=== PATIENT | male | born 1955 | race Caucasian/White ===

== ENCOUNTER → 2017-03-18 | Outpatient (CLI) | payer OTHER ==
[~2017-03-18] MED LIST: ASPCH81X PO; DIPH25TA24 PO; EZET10TA44 PO; LOSA50TA6 PO; METO25TA56 PO; PRED20TA PO
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
== END | disposition home or self-care (01) ==
LOC: C.NEUR 20:00
PROVIDERS: ATTEND Internal Medicine Cardiovascular Disease
DX: G47.33 Obstructive sleep apnea (adult) (pediatric) (principal)

== ENCOUNTER → 2017-04-18 | Outpatient (CLI) | payer OTHER ==
[2017-04-18 14:56] LABS: BASO % 0.2 %; BASO ABS # 0.02 K/uL (0-0.2); COMPLETE YES; EOS % 1.2 %; HEMATOCRIT 47.4 % (42-52); IG% 0.3 %; LYMPH % 20.6 %; LYMPH ABS # 1.99 K/uL (1.2-3.4); MEAN CELL VOLUME 85.1 fL (80-100); MEAN CORPUSCULAR HEMOGLOBIN 27.8 pg (25-34); MEAN CORPUSCULAR HGB CONC 32.7 g/dl (32-36); MEAN PLATELET VOLUME 10.1 fL (7.4-10.4); MONO % 8.4 %; NEUT % 69.3 %; PLATELET COUNT 232 K/uL (130-400); RED BLOOD COUNT 5.57 M/uL (4.7-6.1); WHITE BLOOD COUNT 9.65 K/uL (4.8-10.8)
[2017-04-18 14:57] LABS: ALT/SGPT 28 U/L (12-78); BLOOD UREA NITROGEN 12 mg/dl (7-18); BUN/CREATININE RATIO 12.9 (10-20); CARBON DIOXIDE 27 mmol/L (21-32); CHLORIDE 102 mmol/L (98-107); CHOLESTEROL 111 mg/dl (0-200); CREATININE 0.91 mg/dl (0.60-1.40); GLUCOSE 100 mg/dl (70-99); SODIUM 137 mmol/L (136-145)
[2017-04-18 15:01] LABS: CALCIUM 8.8 mg/dl (8.5-10.1)
[2017-04-18 15:07] LABS: ALB/GLOB RATIO 0.9 (0.9-2); ALKALINE PHOSPHATASE 76 U/L (45-117); AST/SGOT 15 U/L (15-37); CHOLESTEROL/HDL RATIO 3.2; HDL CHOLESTEROL 35 mg/dl; LDL CHOLESTEROL CALCULATED 48 mg/dl; PROSTATE SPECIFIC ANTIGEN 0.461 ng/ml (0.000-4.000); TRIGLYCERIDES 138 mg/dl (0-150); VERY LOW DENSITY LIPOPROT CALC 28 mg/dl
== END | disposition home or self-care (01) ==
LOC: C.LAB1850 11:22
PROVIDERS: ATTEND Internal Medicine
DX: I25.10 Atherosclerotic heart disease of native coronary artery without angina pectoris (principal); Z12.5 Encounter for screening for malignant neoplasm of prostate; G47.33 Obstructive sleep apnea (adult) (pediatric)

== ENCOUNTER → 2017-06-03 | Outpatient (CLI) | payer OTHER ==
[~2017-06-03] VITALS: Ht 172.7 cm; Wt 122.4 kg
[2017-06-03 13:08] VITALS: BP 155/84; PULSE 77; Ht 172.7 cm; Wt 122.4 kg
== END | disposition home or self-care (01) ==
LOC: C.NEUR 12:55
PROVIDERS: ATTEND Internal Medicine Pulmonary Disease
DX: G47.33 Obstructive sleep apnea (adult) (pediatric) (principal); I25.10 Atherosclerotic heart disease of native coronary artery without angina pectoris; G47.21 Circadian rhythm sleep disorder, delayed sleep phase type

== ENCOUNTER → 2017-06-12 | Outpatient (CLI) | payer OTHER ==
--- NOTE | 2017-06-13 07:24 | PAP/PSG TECHNICIAN REPORT ---
[facility] Police Service Technician Polysomnogram Report Study name: None Report date: 06/13/2017 Study date: 06/12/2017 Referring Physician: Adiel Garcia Name: JACKIE MAN Interpreting Physician: Charlie Hicks M.D. Date of : 1955 Police Service Technician: Thuy Patterson, PSGT. Sex: Male Age: 61 StudyType: PSG Weight: 122.4 kgs Height: 61 years, Height 5' 8" Neck Circum:18.5 inches BMI: Medications: Asmanex, Aspirin 81 mg, Atrovastatin 80 mg, Losartan 100 mg, Metoprolol 25 mg, ProAir, Proventil Hfa. Patient History 61 yr. old here for a titration sleep study. Pt. Had a baseline study 03/2017 and had an ahi of 54.Patient had a 10 mg, Ambien prior to bed. Parameters Monitored NPSG: E1-M2, E2-M1, Fp1-M2, Fp2-M1, F3-M2, F4-M2, F4-M1, C3-M2, C4-M2, C4-M1, O1-M2, O2-M2, O2-M1, T3-M2, T4-M1, P3-M2, P4-M1, CHIN1, CHIN2, HR, EKG, Legs, PFLOW, SNOR, FLOW, CFLOW, Tidal Volume, THOR, ABDO, SpO2, PLTH, CPRESS, ETCO2 Wave, ETCO2, pH Sleep Architecture Sleep Stages Time at Lights Off 10:53:00 PM STAGES Time (min.) TST (%) Time at Lights On 5:17:00 AM Wake 40.0 -- Total Recording Time (TRT) 381.00 min. N1 25.0 7 Total Sleep Period (TSP) 359.0 min. N2 244.0 72 Total Sleep Time (TST) 340.5min. N3 0.0 0 Awake Time 40.5 min. REM 71.5 21 Wake after Sleep Onset 22.0 min. Sleep Efficiency (SE) 89 % Sleep Onset Latency (STEPHENIE) 21.5 min. Number of Stage 1 Shifts None Awakenings 8 Stage Changes 39 Number of REM periods 5 REM 71.5 21 REM Latency 37.5 min. NREM 269.0 79 Body Position Analysis Supine Right Left Side Prone Vertical Total Sleep Time (min.) 135.3 66.6 166.4 233.05 0.0 0.0 Total Sleep Time (%) 32% 20% 49% 68 0% N/A% Total Sleep Time REM (min.) 12.5 10.5 48.5 None 0.0 0.0 Total Sleep Time NREM (min.) 95.0 56.1 117.9 None 0.0 0.0 Intermittent Wake (min.) 27.9 7.1 5.0 None 0.0 0.0 Total Sleep Period (%) 32% None None None None None Arousals Myoclonus (PLM) * Events Count Index Events Count Index Spontaneous 45 8 Events Awake (PLMW) 0 0.0 Respiratory 29 5.1 Events Asleep w/ Arousal (PLMA) 9 1.6 PLM 9 2 Events Asleep w/o Arousal (PLMS) 231 40.7 Snoring 6 1 Total Asleep 240 42.3 Total 88 16 Total 240 38 Respiratory Analysis * CA OA MA CH H RERA Total Count 0 0 0 0 63 0 63 Index 0.0 0.0 0.0 0 11.1 0 11.1 Mean Duration 0.0 0.0 0.0 0.00 21.3 0.0 21.3 Longest Duration 0.0 0.0 0.0 0.00 0.0 0.0 56.4 Respiratory Event Summary Total Supine ~Supine Right Left Prone REM NREM Apneas Count 0 0 0 0 0 N/A 0 0 Index 0.0 0 0 0.0 0.0 N/A 0 0 Hypopneas (4% Desat) Count 63 8 55 32 23 N/A 7 56 Index 11.1 4.5 14 28.8 8.3 N/A 5.9 12.5 Apneas & All Hypopneas Count 63 8 55 32 23 N/A 7 56 Index 11.1 4 14 29 8 N/A 5.9 12.5 Respiratory Events (Technical Sales Support Manager+All Hyp+RERA) Count 63 8 55 32 23 N/A 7 56 Index 11.1 4 14 28.8 8.3 N/A 5.9 12.5 Respiratory Related Arousal Count 29 8 25 17 8 N/A 0 29 Index 5.1 2 6 15 3 N/A 0 6 Snoring Analysis Supine Right Left Prone REM NREM Total Snore duration 8.6 min Snores count 40 122 75 N/A 3 234 237 Snore mean duration 2.2 Sec Snores index 22 110 27 N/A 2.5 52.2 41.8 TST with snoring (%) 2.5% Desaturation Event Summary: Minimum %SpO2 Event Count Mean/Min/Max Duration(sec.) Desaturation Index % Time In Bed > 90 76 27.5 / 10.0 / 56.8 72.7 16.8 86 - 90 66 26.4 / 6.5 / 60.0 15.4 69.2 81 - 85 5 28.3 / 8.8 / 45.0 7.2 11.2 76 - 80 0 N/A 0.0 2.5 71 - 75 0 N/A 0.0 0.2 66 - 70 0 N/A 0.0 0.0 61 - 65 0 N/A 0.0 0.0 56 - 60 0 N/A 0.0 0.0 51 - 55 0 N/A 0.0 0.0 < 50 0 N/A 0.0 0.0 Total REM NREM Awake <50% 0.0 min. 0.0 min. 0.0 min. 0.0 min. 51 - 60% 0.0 min. 0.0 min. 0.0 min. 0.0 min. 61 - 70% 0.0 min. 0.0 min. 0.0 min. 0.0 min. 71 - 80% 10.1 min. 3.5 min. 6.6 min. 0.0 min. 81 - 90% 299.7 min. 58.6 min. 214.6 min. 26.5 min. 91 - 100% 62.7 min. 9.0 min. 43.5 min. 10.2 min. Average 88 87 88 89 Minimum SpO2 72 78 72 80 Desaturation Event Index 17.3 16.8 20.1 0.0 # Desat. Events below 89% 104 20 84 0 Time(%) with Saturation below 89% 56.1 11.3 41.6 3.3 Time(min.) with Saturation below 89% 209.1 41.9 154.8 12.4 Heart Rate Analysis End Tidal CO2 Analysis Min (bpm) Max (bpm) Average (bpm) TSP (mins) % of TSP Awake 51 196 67 Above 55 mmHg 0.0 0.0 NREM 49 127 62 50-55 mmHg 0.0 0.0 REM 53 83 64 45-50 mmHg 340.5 100.0 Overall 49 127 62 40-45 mmHg 0.0 0.0 35-40 mmHg 0.0 0.0 30-35 mmHg 0.0 0.0 Average ETCO2 0.0 Supplemental O2 Values Minimum O2 level: None Value Start Time End Time Police Service Technician Comments PAP Study: Mr. Man slept in the right, left, and supine positions. No cardiac arrhythmia, PLM's noted. No bruxism noted. CPAP was initiated at +4 CMH2O and up-titrated to an optimal level of +14 CMH2O, which nearly eliminated all respiratory events and snoring. A Res Mark[employer] mirage quattro was used during titration awoke to use the restroom zero times during the night. stated, I slept better than I do when I am in my own bed. The final report will be interpreted and signed by a sleep physician. The completed physician report will then be placed in the patient medical record. Pt. Had a lot of leg movement prior to sleep and onset of sleep. He also would remove his mask while sleeping and his oxygen sensor, when I would go into the room to put the mask and sensor back on he was very groggy and hard to understand what he was saying. Therapy Event: Therapy (cm H20) 0 4 6 8 10 12 14 Total Time at Pressure (min.) 0.6 35.8 9.8 116.0 35.5 65.9 116.9 TST at Pressure (min.) 0.0 6.4 9.8 113.5 31.5 65.9 113.4 # Periods 1 1 1 1 1 1 1 Sleep Onset (min.) N/A 20.9 0.0 0.0 0.0 0.0 0.0 REM Onset (min.) N/A N/A N/A 12.8 33.3 0.0 104.4 Sleep Efficiency % 0 17 100 97 88 100 97 Wakefulness (%) 100.0 82.1 0.0 2.2 11.3 0.0 3.0 Wakefulness (min.) 0.6 29.4 0.0 2.5 4.0 0.0 3.5 NREM 1 (%) 0.0 16.5 1.0 2.6 8.5 0.0 11.1 NREM 1 (min.) 0.0 5.9 0.1 3.0 3.0 0.0 13.0 NREM 2 (%) 0.0 1.4 99.0 86.2 74.2 29.7 75.2 NREM 2 (min.) 0.0 0.5 9.7 100.0 26.3 19.6 87.9 NREM 3 (%) 0.0 0.0 0.0 0.0 0.0 0.0 0.0 NREM 3 (min.) 0.0 0.0 0.0 0.0 0.0 0.0 0.0 REM (%) 0.0 0.0 0.0 9.1 6.1 70.3 10.7 REM (min.) 0.0 0.0 0.0 10.5 2.2 46.3 12.5 # Arousals N/A 4 12 20 14 8 30 Arousal Index N/A 37.5 73.3 10.6 26.7 7.3 15.9 # Snore N/A 13 87 41 44 8 44 Snore Index N/A 121.8 531.5 21.7 83.9 7.3 23.3 AHI N/A 93.7 91.6 6.9 19.1 6.4 4.2 AHI Supine N/A 0.0 N/A N/A N/A N/A 4.5 AHI Non-Supine N/A 101.6 91.6 6.9 19.1 6.4 0.0 NREM AHI N/A 93.7 91.6 7.0 20.5 3.1 4.8 REM AHI N/A N/A N/A 5.7 0.0 7.8 0.0 RDI N/A 93.7 91.6 6.9 19.1 6.4 4.2 # Obstructive N/A 0 0 0 0 0 0 # Central Ap N/A 0 0 0 0 0 0 # Mixed N/A 0 0 0 0 0 0 # Hypopneas N/A 10 15 13 10 7 8 RERAS N/A 0 0 0 0 0 0 Total Respiratory Events N/A 10 15 13 10 7 8 Time Below SpO2 89.00% (min.) 0.0 4.2 7.7 95.3 23.0 23.5 43.1 Mean NREM SpO2 (%) N/A 87 84 87 87 91 89 Mean REM SpO2 (%) N/A N/A N/A 82 80 88 88 Mean Sleep SpO2 (%) N/A 87 84 87 86 89 89 Min NREM SpO2 (%) N/A 81 74 72 74 86 79 Min REM SpO2 (%) N/A N/A N/A 79 78 79 85 Position Supine (min.) 0.0 0.5 0.0 0.0 0.0 0.0 107.0 Position Non-supine (min.) 0.0 5.9 9.8 113.5 31.5 65.9 6.5 LM Index Sleep N/A 28.1 67.2 68.7 66.8 8.2 27.5 LM Index NREM N/A 28.1 67.2 75.2 71.7 12.3 30.9 LM Index REM N/A N/A N/A 5.7 0.0 6.5 0.0 Mean Heart Rate (bpm) N/A 58 62 65 62 61 60 Min Heart Rate (bpm) N/A 51 51 53 55 52 49
--- NOTE | 2017-06-16 07:44 | POLYSOMNOGRAPH REPORT ---
CLINICAL DATA: A 61-year-old male referred by Dr. Garcia and myself for a titration study. He had a baseline sleep study done in March of 2017, which showed severe sleep apnea with an AHI of 54. The patient did use Ambien 10 mg prior to the sleep study. SLEEP ARCHITECTURE: Total recording time was 381 minutes. Total sleep period was 359 minutes. Total sleep time was 340.5 minutes, divided between 269 minutes of non-REM sleep and 71.5 minutes of REM sleep. Sleep onset latency was 21.5 minutes. REM latency was 37.5 minutes. Sleep efficiency was 89%. Awake after sleep onset was 22 minutes. Sleep consisted of stage N1 7%, stage N2 73% and REM 21%. AROUSAL DATA: 88 arousals were recorded for an index of 16 per hour. PLM DATA: 240 limb movements during sleep were noted for an index of 43.3 per hour with arousal index of 1.6 per hour. RESPIRATORY DATA: The AHI was 11.1. There were 63 hypopneic episodes with a mean duration of 21.3 seconds. OXIMETRY DATA: Nocturnal hypoxemia was seen. Oxygen ijeoma was 72%. Mean saturation was 88%. EKG: Heart rates ranged from 49-127 beats per minute. No arrhythmias were noted. DIETARY TECH'S COMMENTS: The patient slept in the right, left, and supine positions. He used a ResMed Mirage Quattro mask. He was begun on CPAP and was titrated up to a final pressure of 14 cm of water pressure. He had a lot of leg movements prior to sleep and sleep onset. He was removing his mask while sleeping. At his final pressure setting of 14 cm of water pressure, the patient slept for 113 minutes with an AHI of 4.2. IMPRESSION: Severe sleep apnea/hypopnea with nocturnal hypoxemia, corrected with CPAP 14 cm of water pressure using the above noted interface. RECOMMENDATIONS: The patient should be started on the above noted treatment regimen and seen back in followup within 90 days to document efficacy and compliance.
== END | disposition home or self-care (01) ==
LOC: C.NEUR 21:00
PROVIDERS: ATTEND Internal Medicine Pulmonary Disease
DX: G47.33 Obstructive sleep apnea (adult) (pediatric) (principal); I25.10 Atherosclerotic heart disease of native coronary artery without angina pectoris; G47.21 Circadian rhythm sleep disorder, delayed sleep phase type

== ENCOUNTER → 2017-07-04 | Outpatient (CLI) | payer OTHER ==
[~2017-07-04] VITALS: Ht 172.7 cm; Wt 122.7 kg
[2017-07-04 15:25] VITALS: BP 156/95; PULSE 64; Ht 172.7 cm; Wt 122.7 kg
== END | disposition home or self-care (01) ==
LOC: C.NEUR 12:28
PROVIDERS: ATTEND Internal Medicine Pulmonary Disease
DX: G47.33 Obstructive sleep apnea (adult) (pediatric) (principal); G47.21 Circadian rhythm sleep disorder, delayed sleep phase type; I25.10 Atherosclerotic heart disease of native coronary artery without angina pectoris; J44.9 Chronic obstructive pulmonary disease, unspecified; E78.5 Hyperlipidemia, unspecified; R26.9 Unspecified abnormalities of gait and mobility; Z87.891 Personal history of nicotine dependence